=== PATIENT | female | born 1935 | race Caucasian/White ===

== ENCOUNTER 2022-12-12 03:43 | Inpatient (IN) | payer MEDICARE, OTHER ==
[~2022-12-12] VITALS: Ht 149.9 cm; Wt 69.5 kg
[~2022-12-12 03:43] MED LIST: DEMEROL50 MG PO; IBUPROFEN200 MG PO; LEVOXYL75 MCG PO; NEXIUM40 MG PO; REGLAN10 MG PO; ULTRAM 50MG50 MG; XANAX0.25 MG PO
[2022-12-12] MEDS ORDERED: ONDANSETRON HCL INJ 2MG/ML 2ML 2 MG/ML VIAL IV STA (04:07)
[2022-12-12 04:21] LABS: BASOPHILS # (AUTO) 0.1 (0.0-0.1); BASOPHILS % 0.8 % (0.0-1.0); EOSINOPHILS % 0.3 % (0.0-6.0); HEMATOCRIT 45.1 % (34.2-44.1); HEMOGLOBIN 15.4 g/dL (12.0-16.0); LYMPHOCYTES # (AUTO) 1.4 (1.0-3.2); LYMPHOCYTES % 22.2 % (18.0-39.1); MEAN CORPUSCULAR HEMOGLOBIN 30.3 pg (28-32); MEAN CORPUSCULAR HGB CONC 34.1 g/dL (31-35); MEAN CORPUSCULAR VOLUME 88.8 fL (81-99); MONOCYTES # (AUTO) 0.8 (0.2-0.8); NEUTROPHILS # (AUTO) 4.1 (2.1-6.9); NEUTROPHILS % 64.5 % (38.7-80.0); PLATELET COUNT 293 x10e3/uL (140-360); RED BLOOD COUNT 5.08 x10e6/uL (3.6-5.1); RED CELL DISTRIBUTION WIDTH 13.6 % (11.7-14.4)
[2022-12-12 04:25] LABS: COLOR,URINE YELLOW (YELLOW); LEUKOCYTE ESTERASE ,URINE 1+ (NEGATIVE); NITRITE,URINE NEGATIVE (NEGATIVE)
[2022-12-12 04:26] LABS: KETONES,URINE 2+ (NEGATIVE); PROTEIN,URINE DIPSTICK 1+ (NEGATIVE); URINE UROBILINOGEN 0.2 mg/dL (0.2 - 1)
[2022-12-12 04:27] LABS: CLARITY,URINE CLOUDY (CLEAR)
[2022-12-12 04:31] LABS: BACTERIA,URINE MANY /HPF; WBC,URINE (MAN) >50 /HPF (0-5)
[2022-12-12 04:32] LABS: EPITHELIAL CELLS,URINE MODERATE /LPF; RENAL EPITHELIAL CELLS,URINE FEW; TRANSITIONAL EPI CELLS,URINE MANY
[2022-12-12 04:35] LABS: ALBUMIN 4.1 g/dL (3.5-5.0); ALBUMIN/GLOBULIN RATIO 1.2 (0.8-2.0); ANION GAP 18.6 mmol/L (8-16); CALCIUM 9.8 mg/dL (8.4-10.2); CREATININE, SERUM 0.85 mg/dL (0.57-1.11); POTASSIUM 3.6 mmol/L (3.5-5.1)
[2022-12-12 04:42] LABS: CREATINE KINASE MB 2.3 ng/mL (0-5.0)
[2022-12-12] MEDS ORDERED: IOPAMIDOL 370 MG/ML 100 ML INFUS..BTL INJ ONE (05:06)
[2022-12-12] MEDS: SODIUM CHLORIDE 0.9% 1000ML 1,000 ML IV SCH ×2 (06:47→15:24)
[2022-12-12 20:54] VITALS: BP 141/81
[2022-12-12 21:03] VITALS: BP 141/81
[2022-12-12 21:06] VITALS: BP 141/81
[2022-12-12] MEDS ORDERED: FLONASE ALLERG9.9 ML INH (21:17)
[2022-12-12] MEDS ORDERED: DICLOFENAC SODI75 MG (21:22)
[2022-12-12] MEDS ORDERED: MONTELUKAST SOD10 MG PO (21:22)
[2022-12-12 21:50] VITALS: BP 146/79
[2022-12-13] VITALS (7 sets, daily range): BP systolic 145–152; BP diastolic 51–67
[2022-12-13] MEDS: SODIUM CHLORIDE 0.9% 1000ML 1,000 ML IV SCH ×2 (05:09→12:00)
[2022-12-13 06:07] LABS: BASOPHILS # (AUTO) 0.1 (0.0-0.1); EOSINOPHILS # (AUTO) 0.1 (0.0-0.4); EOSINOPHILS % 1.2 % (0.0-6.0); HEMATOCRIT 42.4 % (34.2-44.1); HEMOGLOBIN 13.9 g/dL (12.0-16.0); LYMPHOCYTES # (AUTO) 1.6 (1.0-3.2); MEAN CORPUSCULAR HEMOGLOBIN 30.1 pg (28-32); MEAN CORPUSCULAR HGB CONC 32.8 g/dL (31-35); MEAN CORPUSCULAR VOLUME 91.8 fL (81-99); MONOCYTES # (AUTO) 0.6 (0.2-0.8); MONOCYTES % 10.6 % (4.4-11.3); NEUTROPHILS # (AUTO) 3.7 (2.1-6.9); NEUTROPHILS % 60.9 % (38.7-80.0); PLATELET COUNT 268 x10e3/uL (140-360); RED BLOOD COUNT 4.62 x10e6/uL (3.6-5.1); RED CELL DISTRIBUTION WIDTH 13.5 % (11.7-14.4)
[2022-12-13 06:31] LABS: ALBUMIN 3.5 g/dL (3.5-5.0); ALBUMIN/GLOBULIN RATIO 1.2 (0.8-2.0); ANION GAP 17.4 mmol/L (8-16); CALCIUM 8.6 mg/dL (8.4-10.2); CHOL/HDL RATIO 2.3 (3.0-3.6); CREATININE, SERUM 0.7 mg/dL (0.57-1.11); MAGNESIUM 1.9 MG/DL (1.3-2.1); PHOSPHORUS 2.7 MG/DL (2.3-4.7); POTASSIUM 3.4 mmol/L (3.5-5.1)
[2022-12-13 06:53] LABS: THYROID STIMULATING HORMONE 1.254 uIU/mL (0.350-4.940)
[2022-12-13] MEDS: KCL 20MEQ/.9 SOD CHL 1,000 ML IV SCH (14:53)
[2022-12-13] MEDS: BISACODYL 10 MG SUPP PR SCH (22:51)
[2022-12-14] MEDS: KCL 20MEQ/.9 SOD CHL 1,000 ML IV SCH ×3 (05:15→19:52)
[2022-12-14 08:08] VITALS: BP 155/66
[2022-12-14 08:45] VITALS: BP 155/66
[2022-12-14] MEDS: BISACODYL 10 MG SUPP PR SCH (08:48)
[2022-12-14 11:30] VITALS: BP 167/58
[2022-12-14 16:00] VITALS: BP 159/72
[2022-12-14] MEDS: ALPRAZOLAM 0.25 MG TAB PO PRN (19:56)
[2022-12-14 21:00] VITALS: BP 139/78
[2022-12-15] VITALS (8 sets, daily range): BP systolic 137–175; BP diastolic 60–76
[2022-12-15] MEDS: KCL 20MEQ/.9 SOD CHL 1,000 ML IV SCH ×2 (05:13→16:15)
[2022-12-15 06:09] LABS: BASOPHILS # (AUTO) 0.1 (0.0-0.1); BASOPHILS % 0.8 % (0.0-1.0); EOSINOPHILS # (AUTO) 0.1 (0.0-0.4); EOSINOPHILS % 0.7 % (0.0-6.0); HEMATOCRIT 43.6 % (34.2-44.1); HEMOGLOBIN 14.1 g/dL (12.0-16.0); LYMPHOCYTES # (AUTO) 1.7 (1.0-3.2); LYMPHOCYTES % 17.8 % (18.0-39.1); MEAN CORPUSCULAR HEMOGLOBIN 29.9 pg (28-32); MEAN CORPUSCULAR HGB CONC 32.3 g/dL (31-35); MEAN CORPUSCULAR VOLUME 92.6 fL (81-99); MONOCYTES # (AUTO) 0.7 (0.2-0.8); MONOCYTES % 6.8 % (4.4-11.3); NEUTROPHILS # (AUTO) 7.1 (2.1-6.9); NEUTROPHILS % 73.4 % (38.7-80.0); PLATELET COUNT 284 x10e3/uL (140-360); RED BLOOD COUNT 4.71 x10e6/uL (3.6-5.1); RED CELL DISTRIBUTION WIDTH 13.4 % (11.7-14.4)
[2022-12-15 06:34] LABS: ANION GAP 22.7 mmol/L (8-16); CREATININE, SERUM 0.74 mg/dL (0.57-1.11); POTASSIUM 3.7 mmol/L (3.5-5.1)
[2022-12-15] MEDS: BISACODYL 10 MG SUPP PR SCH (21:17)
[2022-12-15] MEDS: ALPRAZOLAM 0.25 MG TAB PO PRN (21:18)
[2022-12-15] MEDS: HYDRALAZINE HCL 20 MG/ML VIAL IV PRN (23:08)
[2022-12-15] MEDS: DICLOFENAC SOD 50 MG TAB PO SCH (23:08)
[2022-12-16] VITALS (7 sets, daily range): BP systolic 148–166; BP diastolic 61–72
[2022-12-16] MEDS: ONDANSETRON HCL INJ 2MG/ML 2ML 2 MG/ML VIAL IV PRN ×2 (00:19→10:23)
[2022-12-16 05:01] LABS: BASOPHILS % 0.3 % (0.0-1.0); EOSINOPHILS # (AUTO) 0.1 (0.0-0.4); EOSINOPHILS % 0.7 % (0.0-6.0); HEMATOCRIT 41.5 % (34.2-44.1); HEMOGLOBIN 13.5 g/dL (12.0-16.0); LYMPHOCYTES # (AUTO) 1.6 (1.0-3.2); LYMPHOCYTES % 17.4 % (18.0-39.1); MEAN CORPUSCULAR HEMOGLOBIN 29.7 pg (28-32); MEAN CORPUSCULAR HGB CONC 32.5 g/dL (31-35); MEAN CORPUSCULAR VOLUME 91.4 fL (81-99); MONOCYTES # (AUTO) 0.5 (0.2-0.8); MONOCYTES % 5.6 % (4.4-11.3); NEUTROPHILS # (AUTO) 6.9 (2.1-6.9); NEUTROPHILS % 75.6 % (38.7-80.0); PLATELET COUNT 257 x10e3/uL (140-360); RED BLOOD COUNT 4.54 x10e6/uL (3.6-5.1); RED CELL DISTRIBUTION WIDTH 13.5 % (11.7-14.4)
[2022-12-16 05:19] LABS: ANION GAP 16.3 mmol/L (8-16); CALCIUM 8.5 mg/dL (8.4-10.2); CREATININE, SERUM 0.62 mg/dL (0.57-1.11); POTASSIUM 3.3 mmol/L (3.5-5.1)
[2022-12-16] MEDS: DICLOFENAC SOD 50 MG TAB PO SCH ×2 (09:00→16:10)
[2022-12-16] MEDS ORDERED: ALPRAZOLAM 0.25 MG TAB PO PRN (10:15)
[2022-12-16] MEDS ORDERED: BISACODYL 10 MG SUPP PR SCH (10:30)
[2022-12-16] MEDS ORDERED: POTASSIUM CHLORIDE 20 MEQ TAB CR PO ONE (10:30)
[2022-12-16] MEDS: BISACODYL 10 MG SUPP PR SCH (10:52)
[2022-12-16] MEDS ORDERED: SEVOFLURANE INHAL SOLN 250 ML PEN BTL ONE (12:27)
[2022-12-16] MEDS ORDERED: POVIDONE IODINE 0.05% 0.05 % ML PO ONE (12:27)
[2022-12-16] MEDS ORDERED: KETOROLAC TROMETHAMINE 30 MG/ML VIAL ONE (12:27)
[2022-12-16] MEDS ORDERED: PROPOFOL IV EMULSION 10 MG/ML 20 ML VIAL ONE (12:27)
[2022-12-16] MEDS ORDERED: SUCCINYLCHOLINE CHLORIDE 20 MG/ML 10ML VIAL ONE (12:27)
[2022-12-16] MEDS ORDERED: METOCLOPRAMIDE HCL 10 MG/2ML VIAL ONE (12:27)
[2022-12-16] MEDS ORDERED: ONDANSETRON HCL INJ 2MG/ML 2ML 2 MG/ML VIAL ONE (12:27)
[2022-12-16] MEDS ORDERED: ROCURONIUM BROMIDE 10 MG/ML 5ML VIAL IV ONE (12:27)
[2022-12-16] MEDS ORDERED: DEXAMETHASONE SOD PHOS INJ 4 MG/ML SDV ONE (12:27)
[2022-12-16] MEDS ORDERED: FENTANYL CITRATE/PF 100MCG/2 ML INJ ONE (13:38)
[2022-12-16] MEDS ORDERED: MIDAZOLAM HCL 2 MG/2 ML VIAL ONE (13:38)
[2022-12-16] MEDS ORDERED: HYDROMORPHONE 1MG/1ML INJ ONE (18:41)
[2022-12-16] MEDS ORDERED: SUGAMMADEX SODIUM 200 MG/2 ML VIAL IV ONE (19:57)
[2022-12-16] MEDS: SODIUM CHLORIDE 0.9% 1000ML 1,000 ML IV SCH (22:01)
[2022-12-17] VITALS (8 sets, daily range): BP systolic 139–151; BP diastolic 55–70
[2022-12-17 05:00] LABS: BASOPHILS % 0.2 % (0.0-1.0); HEMATOCRIT 42.7 % (34.2-44.1); HEMOGLOBIN 13.6 g/dL (12.0-16.0); LYMPHOCYTES # (AUTO) 0.9 (1.0-3.2); LYMPHOCYTES % 5.1 % (18.0-39.1); MEAN CORPUSCULAR HEMOGLOBIN 30.2 pg (28-32); MEAN CORPUSCULAR HGB CONC 31.9 g/dL (31-35); MEAN CORPUSCULAR VOLUME 94.7 fL (81-99); MONOCYTES % 5.3 % (4.4-11.3); NEUTROPHILS % 88.6 % (38.7-80.0); PLATELET COUNT 246 x10e3/uL (140-360); RED BLOOD COUNT 4.51 x10e6/uL (3.6-5.1); RED CELL DISTRIBUTION WIDTH 13.7 % (11.7-14.4)
[2022-12-17 05:27] LABS: ALBUMIN/GLOBULIN RATIO 1.2 (0.8-2.0); ANION GAP 14.9 mmol/L (8-16); CREATININE, SERUM 0.69 mg/dL (0.57-1.11); POTASSIUM 3.9 mmol/L (3.5-5.1)
[2022-12-17] MEDS ORDERED: LEVOTHYROXINE SODIUM 75 MCG TAB PO SCH (06:30)
[2022-12-17] MEDS: SODIUM CHLORIDE 0.9% 1000ML 1,000 ML IV SCH ×3 (08:12→23:47)
[2022-12-17] MEDS ORDERED: PANTOPRAZOLE SOD 40 MG TABEC PO SCH (09:00)
[2022-12-17] MEDS ORDERED: MONTELUKAST SODIUM 10 MG TAB PO SCH (09:00)
[2022-12-17] MEDS: LORAZEPAM INJ 2 MG/ML VIAL IV PRN (20:58)
[2022-12-18] VITALS (9 sets, daily range): BP systolic 132–165; BP diastolic 62–92
[2022-12-18 05:30] LABS: BASOPHILS % 0.2 % (0.0-1.0); EOSINOPHILS % 0.1 % (0.0-6.0); HEMATOCRIT 39.5 % (34.2-44.1); HEMOGLOBIN 12.7 g/dL (12.0-16.0); LYMPHOCYTES # (AUTO) 1.8 (1.0-3.2); LYMPHOCYTES % 13.3 % (18.0-39.1); MEAN CORPUSCULAR HGB CONC 32.2 g/dL (31-35); MEAN CORPUSCULAR VOLUME 93.4 fL (81-99); MONOCYTES # (AUTO) 0.9 (0.2-0.8); MONOCYTES % 6.8 % (4.4-11.3); NEUTROPHILS # (AUTO) 10.7 (2.1-6.9); NEUTROPHILS % 78.6 % (38.7-80.0); PLATELET COUNT 261 x10e3/uL (140-360); RED BLOOD COUNT 4.23 x10e6/uL (3.6-5.1); RED CELL DISTRIBUTION WIDTH 14.1 % (11.7-14.4)
[2022-12-18 05:45] LABS: ALBUMIN 2.8 g/dL (3.5-5.0); ANION GAP 12.5 mmol/L (8-16); CALCIUM 8.3 mg/dL (8.4-10.2); CREATININE, SERUM 0.6 mg/dL (0.57-1.11); POTASSIUM 3.5 mmol/L (3.5-5.1)
[2022-12-18] MEDS: HYDRALAZINE HCL 20 MG/ML VIAL IV PRN (06:17)
[2022-12-18] MEDS ORDERED: BISACODYL 10 MG SUPP PR ONE (08:00)
[2022-12-18] MEDS: SODIUM CHLORIDE 0.9% 1000ML 1,000 ML IV SCH (13:47)
[2022-12-18] MEDS ORDERED: MAGNESIUM HYDROXIDE 30 ML UDC PO ONE ×2 (18:45→19:45)
[2022-12-18] MEDS: BISACODYL 10 MG SUPP PR SCH ×2 (21:00→21:18)
[2022-12-18] MEDS: LORAZEPAM INJ 2 MG/ML VIAL IV PRN (21:18)
[2022-12-19] VITALS (33 sets, daily range): BP systolic 87–152; BP diastolic 56–99
[2022-12-19] MEDS: SODIUM CHLORIDE 0.9% 1000ML 1,000 ML IV SCH ×2 (00:32→09:58)
[2022-12-19 04:50] LABS: BASOPHILS % 0.4 % (0.0-1.0); EOSINOPHILS # (AUTO) 0.1 (0.0-0.4); EOSINOPHILS % 0.8 % (0.0-6.0); HEMATOCRIT 38.7 % (34.2-44.1); HEMOGLOBIN 12.6 g/dL (12.0-16.0); LYMPHOCYTES # (AUTO) 1.4 (1.0-3.2); LYMPHOCYTES % 12.6 % (18.0-39.1); MEAN CORPUSCULAR HEMOGLOBIN 30.1 pg (28-32); MEAN CORPUSCULAR HGB CONC 32.6 g/dL (31-35); MEAN CORPUSCULAR VOLUME 92.6 fL (81-99); MONOCYTES # (AUTO) 0.6 (0.2-0.8); NEUTROPHILS # (AUTO) 9.1 (2.1-6.9); NEUTROPHILS % 80.3 % (38.7-80.0); PLATELET COUNT 245 x10e3/uL (140-360); RED BLOOD COUNT 4.18 x10e6/uL (3.6-5.1)
[2022-12-19 05:10] LABS: ALBUMIN 2.7 g/dL (3.5-5.0); ALBUMIN/GLOBULIN RATIO 0.9 (0.8-2.0); ANION GAP 18.9 mmol/L (8-16); CALCIUM 8.3 mg/dL (8.4-10.2); CREATININE, SERUM 0.55 mg/dL (0.57-1.11)
[2022-12-19 05:20] LABS: POTASSIUM 2.9 mmol/L (3.5-5.1)
[2022-12-19 09:12] LABS: MAGNESIUM 2.2 MG/DL (1.3-2.1); PHOSPHORUS 1.7 MG/DL (2.3-4.7)
[2022-12-19] MEDS: BISACODYL 10 MG SUPP PR SCH ×2 (09:59→20:38)
[2022-12-19] MEDS ORDERED: BISACODYL 10 MG SUPP PR ONE (10:03)
[2022-12-19] MEDS: ONDANSETRON HCL INJ 2MG/ML 2ML 2 MG/ML VIAL IV PRN (10:33)
[2022-12-19] MEDS: LORAZEPAM INJ 2 MG/ML VIAL IV PRN ×2 (11:10→20:38)
[2022-12-19] MEDS ORDERED: POTASSIUM PHOSPHATE 15 MM in DEXTROSE 5% 250ML 250 ML IV ONE (11:30)
[2022-12-19] MEDS ORDERED: AMIODARONE 900MG 500 ML IV SCH ×2 (11:45→18:00)
[2022-12-19] MEDS ORDERED: AMIODARONE HCL 150 MG/100 ML BAG IV ONE (12:00)
[2022-12-19] MEDS ORDERED: AMIODARONE HCL 100 ML IV ONE (12:30)
[2022-12-19] MEDS ORDERED: DEXTROSE 5% 1,000 ML IV SCH (16:30)
[2022-12-19] MEDS ORDERED: POTASSIUM CHLORIDE 20MEQ/100ML 200 ML IV ONE (16:30)
[2022-12-19] MEDS ORDERED: POTASSIUM CHLORIDE 10MEQ/100ML 100 ML IV SCH (18:20)
[2022-12-19] MEDS: D5.45%NS/KCL 20MEQ 1,000 ML IV SCH (18:58)
[2022-12-19 21:08] LABS: BASOPHILS % 0.3 % (0.0-1.0); EOSINOPHILS # (AUTO) 0.1 (0.0-0.4); EOSINOPHILS % 0.8 % (0.0-6.0); HEMATOCRIT 38.1 % (34.2-44.1); HEMOGLOBIN 12.2 g/dL (12.0-16.0); LYMPHOCYTES # (AUTO) 1.6 (1.0-3.2); LYMPHOCYTES % 13.6 % (18.0-39.1); MEAN CORPUSCULAR VOLUME 93.8 fL (81-99); MONOCYTES # (AUTO) 0.6 (0.2-0.8); MONOCYTES % 5.2 % (4.4-11.3); NEUTROPHILS # (AUTO) 9.3 (2.1-6.9); NEUTROPHILS % 79.1 % (38.7-80.0); PLATELET COUNT 255 x10e3/uL (140-360); RED BLOOD COUNT 4.06 x10e6/uL (3.6-5.1); RED CELL DISTRIBUTION WIDTH 14.3 % (11.7-14.4)
[2022-12-19 21:32] LABS: ANION GAP 15.2 mmol/L (8-16); CALCIUM 7.7 mg/dL (8.4-10.2); CREATININE, SERUM 0.66 mg/dL (0.57-1.11)
[2022-12-19 21:37] LABS: POTASSIUM 4.2 mmol/L (3.5-5.1)
[2022-12-20] VITALS (43 sets, daily range): BP systolic 107–161; BP diastolic 58–136
[2022-12-20] MEDS: D5.45%NS/KCL 20MEQ 1,000 ML IV SCH ×2 (04:18→14:43)
[2022-12-20 08:10] LABS: BASOPHILS # (AUTO) 0.1 (0.0-0.1); BASOPHILS % 0.5 % (0.0-1.0); EOSINOPHILS # (AUTO) 0.2 (0.0-0.4); EOSINOPHILS % 1.6 % (0.0-6.0); HEMATOCRIT 39.8 % (34.2-44.1); HEMOGLOBIN 12.4 g/dL (12.0-16.0); LYMPHOCYTES # (AUTO) 1.3 (1.0-3.2); LYMPHOCYTES % 13.1 % (18.0-39.1); MEAN CORPUSCULAR HEMOGLOBIN 29.5 pg (28-32); MEAN CORPUSCULAR HGB CONC 31.2 g/dL (31-35); MEAN CORPUSCULAR VOLUME 94.8 fL (81-99); MONOCYTES # (AUTO) 0.5 (0.2-0.8); MONOCYTES % 4.6 % (4.4-11.3); NEUTROPHILS # (AUTO) 7.9 (2.1-6.9); NEUTROPHILS % 79.7 % (38.7-80.0); PLATELET COUNT 271 x10e3/uL (140-360); RED CELL DISTRIBUTION WIDTH 14.3 % (11.7-14.4)
[2022-12-20 08:34] LABS: ALBUMIN 2.7 g/dL (3.5-5.0); CREATININE, SERUM 0.63 mg/dL (0.57-1.11)
[2022-12-20] MEDS: BISACODYL 10 MG SUPP PR SCH ×2 (09:30→20:39)
[2022-12-20] MEDS: ONDANSETRON HCL INJ 2MG/ML 2ML 2 MG/ML VIAL IV PRN (16:36)
[2022-12-20] MEDS: AMIODARONE HCL 200 MG TAB PO SCH (16:39)
[2022-12-20] MEDS: HYDROMORPHONE 1MG/1ML INJ IV PRN (17:05)
[2022-12-20] MEDS: LORAZEPAM INJ 2 MG/ML VIAL IV PRN (20:39)
[2022-12-20] MEDS ORDERED: POTASSIUM PHOSPHATE 15 MM in SODIUM CHLORIDE 0.9% 250ML 250 ML IV SCH (21:15)
[2022-12-21] VITALS (13 sets, daily range): BP systolic 121–169; BP diastolic 67–98
[2022-12-21] MEDS: D5.45%NS/KCL 20MEQ 1,000 ML IV SCH ×3 (00:09→21:06)
[2022-12-21 06:43] LABS: BASOPHILS % 0.4 % (0.0-1.0); EOSINOPHILS # (AUTO) 0.3 (0.0-0.4); EOSINOPHILS % 2.3 % (0.0-6.0); HEMATOCRIT 38.5 % (34.2-44.1); HEMOGLOBIN 12.2 g/dL (12.0-16.0); LYMPHOCYTES # (AUTO) 1.5 (1.0-3.2); LYMPHOCYTES % 14.2 % (18.0-39.1); MEAN CORPUSCULAR HGB CONC 31.7 g/dL (31-35); MEAN CORPUSCULAR VOLUME 94.6 fL (81-99); MONOCYTES # (AUTO) 0.4 (0.2-0.8); MONOCYTES % 4.1 % (4.4-11.3); NEUTROPHILS # (AUTO) 8.5 (2.1-6.9); NEUTROPHILS % 78.4 % (38.7-80.0); PLATELET COUNT 254 x10e3/uL (140-360); RED BLOOD COUNT 4.07 x10e6/uL (3.6-5.1); RED CELL DISTRIBUTION WIDTH 14.1 % (11.7-14.4)
[2022-12-21 07:09] LABS: ALBUMIN 2.5 g/dL (3.5-5.0); ALBUMIN/GLOBULIN RATIO 0.9 (0.8-2.0); ANION GAP 10.2 mmol/L (8-16); CALCIUM 7.9 mg/dL (8.4-10.2); CREATININE, SERUM 0.55 mg/dL (0.57-1.11); PHOSPHORUS 1.6 MG/DL (2.3-4.7); POTASSIUM 4.2 mmol/L (3.5-5.1)
[2022-12-21] MEDS: BISACODYL 10 MG SUPP PR SCH ×2 (08:00→21:17)
[2022-12-21] MEDS: AMIODARONE HCL 200 MG TAB PO SCH ×2 (09:45→16:29)
[2022-12-21] MEDS: HYDROMORPHONE 1MG/1ML INJ IV PRN (12:34)
[2022-12-21] MEDS ORDERED: MAGNESIUM HYDROXIDE 30 ML UDC PO ONE (20:15)
[2022-12-21] MEDS: LORAZEPAM INJ 2 MG/ML VIAL IV PRN (21:07)
[2022-12-22] VITALS (7 sets, daily range): BP systolic 144–176; BP diastolic 75–96
[2022-12-22] MEDS: ONDANSETRON HCL INJ 2MG/ML 2ML 2 MG/ML VIAL IV PRN ×3 (01:17→18:48)
[2022-12-22] MEDS: HYDROMORPHONE 1MG/1ML INJ IV PRN ×3 (01:18→18:49)
[2022-12-22 06:29] LABS: BASOPHILS % 0.3 % (0.0-1.0); EOSINOPHILS # (AUTO) 0.2 (0.0-0.4); EOSINOPHILS % 1.5 % (0.0-6.0); HEMATOCRIT 40.9 % (34.2-44.1); HEMOGLOBIN 13.3 g/dL (12.0-16.0); LYMPHOCYTES # (AUTO) 1.5 (1.0-3.2); LYMPHOCYTES % 12.7 % (18.0-39.1); MEAN CORPUSCULAR HGB CONC 32.5 g/dL (31-35); MEAN CORPUSCULAR VOLUME 92.1 fL (81-99); MONOCYTES # (AUTO) 0.6 (0.2-0.8); NEUTROPHILS # (AUTO) 9.4 (2.1-6.9); PLATELET COUNT 271 x10e3/uL (140-360); RED BLOOD COUNT 4.44 x10e6/uL (3.6-5.1); RED CELL DISTRIBUTION WIDTH 13.7 % (11.7-14.4)
[2022-12-22 06:48] LABS: CALCIUM 8.4 mg/dL (8.4-10.2); CREATININE, SERUM 0.53 mg/dL (0.57-1.11); MAGNESIUM 2.4 MG/DL (1.3-2.1); PHOSPHORUS 2.1 MG/DL (2.3-4.7)
[2022-12-22] MEDS: AMIODARONE HCL 200 MG TAB PO SCH ×2 (10:56→18:15)
[2022-12-22] MEDS: BISACODYL 10 MG SUPP PR SCH (10:57)
[2022-12-22] MEDS: PHOSPHORUS 250 MG TAB PO SCH (10:57)
[2022-12-22] MEDS ORDERED: LISINOPRIL 2.5 MG TAB PO ONE (11:00)
[2022-12-22] MEDS: LORAZEPAM INJ 2 MG/ML VIAL IV PRN (21:03)
[2022-12-23] VITALS (9 sets, daily range): BP systolic 134–164; BP diastolic 66–92
[2022-12-23] MEDS: D5.45%NS/KCL 20MEQ 1,000 ML IV SCH (05:51)
[2022-12-23] MEDS: PHOSPHORUS 250 MG TAB PO SCH (09:05)
[2022-12-23] MEDS: LISINOPRIL 2.5 MG TAB PO SCH (09:05)
[2022-12-23] MEDS: AMIODARONE HCL 200 MG TAB PO SCH ×2 (09:05→17:46)
[2022-12-23] MEDS: ONDANSETRON HCL INJ 2MG/ML 2ML 2 MG/ML VIAL IV PRN ×2 (12:37→18:24)
[2022-12-23] MEDS: HYDROMORPHONE 1MG/1ML INJ IV PRN ×2 (12:37→18:28)
[2022-12-23] MEDS: LORAZEPAM INJ 2 MG/ML VIAL IV PRN (20:51)
[2022-12-24] VITALS: BP 152/82
[2022-12-24] MEDS: D5.45%NS/KCL 20MEQ 1,000 ML IV SCH (03:21)
[2022-12-24 06:42] LABS: BASOPHILS % 0.3 % (0.0-1.0); EOSINOPHILS # (AUTO) 0.2 (0.0-0.4); EOSINOPHILS % 1.4 % (0.0-6.0); HEMATOCRIT 39.1 % (34.2-44.1); HEMOGLOBIN 12.8 g/dL (12.0-16.0); LYMPHOCYTES # (AUTO) 1.8 (1.0-3.2); LYMPHOCYTES % 15.4 % (18.0-39.1); MEAN CORPUSCULAR HEMOGLOBIN 29.9 pg (28-32); MEAN CORPUSCULAR HGB CONC 32.7 g/dL (31-35); MEAN CORPUSCULAR VOLUME 91.4 fL (81-99); MONOCYTES # (AUTO) 0.8 (0.2-0.8); MONOCYTES % 6.9 % (4.4-11.3); NEUTROPHILS # (AUTO) 8.6 (2.1-6.9); NEUTROPHILS % 75.6 % (38.7-80.0); PLATELET COUNT 291 x10e3/uL (140-360); RED BLOOD COUNT 4.28 x10e6/uL (3.6-5.1); RED CELL DISTRIBUTION WIDTH 13.9 % (11.7-14.4)
[2022-12-24 07:11] LABS: ANION GAP 11.1 mmol/L (8-16); BLOOD UREA NITROGEN < 5 mg/dL (7-26); CALCIUM 8.4 mg/dL (8.4-10.2); CARBON DIOXIDE 31 mmol/L (22-29); CHLORIDE 102 mmol/L (98-107); GLUCOSE 101 mg/dL (74-118); POTASSIUM 4.1 mmol/L (3.5-5.1); SODIUM 140 mmol/L (136-145)
[2022-12-24 07:12] LABS: BUN/CREATININE RATIO 10 (6-25)
[2022-12-24 08:00] VITALS: BP 131/73
[2022-12-24 08:13] VITALS: BP 131/73
[2022-12-24] MEDS: AMIODARONE HCL 200 MG TAB PO SCH (08:52)
[2022-12-24] MEDS: PHOSPHORUS 250 MG TAB PO SCH (08:53)
[2022-12-24] MEDS: LISINOPRIL 2.5 MG TAB PO SCH (08:53)
[2022-12-24] MEDS ORDERED: AMIODARONE HCL200 MG PO (11:39)
[2022-12-24] MEDS ORDERED: LISINOPRIL2.5 MG PO (11:39)
[2022-12-24 11:58] VITALS: BP 137/65
== END 2022-12-24 15:21 | disposition home or self-care (01) | DRG 330 ==
LOC: ER 03:48 → ERHOLD 06:02 → MED/SURG2 20:42 → MED/SURG 12-16 21:33 → ICU 12-19 14:24 → MED/SURG 12-21 10:34
PROVIDERS: ADMIT Internal Medicine; ATTEND Internal Medicine
PROC: 0DT80ZZ Resection of Small Intestine, Open Approach (ICD-10-PCS; 2022-12-16)
PROC: 0DN80ZZ Release Small Intestine, Open Approach (ICD-10-PCS; principal; 2022-12-16 18:39)
PROC: 02HV33Z Insertion of Infusion Device into Superior Vena Cava, Percutaneous Approach (ICD-10-PCS; 2022-12-19)
DX: K56.50 Intestinal adhesions [bands], unspecified as to partial versus complete obstruction (principal); N39.0 Urinary tract infection, site not specified; R18.8 Other ascites; Z79.01 Long term (current) use of anticoagulants; E03.9 Hypothyroidism, unspecified; K21.9 Gastro-esophageal reflux disease without esophagitis; E87.6 Hypokalemia; K57.10 Diverticulosis of small intestine without perforation or abscess without bleeding; Z20.822 Contact with and (suspected) exposure to COVID-19; I48.0 Paroxysmal atrial fibrillation; K52.9 Noninfective gastroenteritis and colitis, unspecified; M19.90 Unspecified osteoarthritis, unspecified site; Z96.659 Presence of unspecified artificial knee joint; Z88.6 Allergy status to analgesic agent; Z88.5 Allergy status to narcotic agent; Z88.2 Allergy status to sulfonamides; E87.8 Other disorders of electrolyte and fluid balance, not elsewhere classified; E83.39 Other disorders of phosphorus metabolism
CPT/HCPCS: 36415; 36569; 71045; 71046; 74022; 74176; 74177; 74470; 80048; 80053; 80061; 81001; 82550; 82553; 83036; 83690; 83735; 84100; 84443; 84484; 85025; 86850; 86900; 87086; 87186; 88307; 93005; 93306; 94799; 96361; 99252; 99284; J0171; J0330; J0360; J1100; J1170; J1885; J2060; J2250; J2405; J2543; J2765; J2795; J3480; J7030; J7070; Q9967